=== PATIENT | male | born 1995 | race Caucasian/White ===

== ENCOUNTER 2020-06-17 15:58 | Emergency (ER) | payer OTHER, SELFPAY ==
--- NOTE | 2020-06-17 16:22 | RAD ---
XR Foot Lt 3 View STANDARD INDICATION: Left foot injury while working out COMPARISON: None. FINDINGS: Bones: The bone mineralization appears normal. There is an accessory ossicle seen adjacent to the cub oid. No acute fracture or subluxation is demonstrated. Joints: Joints spaces appear preserved. Lisfranc alignment: Lisfranc alignment appears within normal limits. Soft tissues: No soft tissue injury demonstrated. No radiographic foreign body demonstrated. IMPRESSION: No acute osseous abnormality.
[2020-06-17] MEDS ORDERED: Ketorolac Tromethamine 30 MG/ML VIAL ONE (16:41)
== END 2020-06-17 17:07 | disposition home or self-care (01) ==
LOC: ERS 15:58
DX: S93.402A Sprain of unspecified ligament of left ankle, initial encounter (principal); F17.200 Nicotine dependence, unspecified, uncomplicated; X50.1XXA Overexertion from prolonged static or awkward postures, initial encounter
CPT/HCPCS: 96372; J1885